=== PATIENT | male | born 1960 ===

== ENCOUNTER 2023-09-05 11:40 | Inpatient (IN) | payer MEDICARE ==
[~2023-09-05] VITALS: Ht 175.3 cm; Wt 82.4 kg
[2023-09-05] MEDS ORDERED: METFORMIN HCL500 M2 PO (11:55)
[2023-09-05] MEDS ORDERED: LISINOPRIL-HCT1 EACH PO (11:55)
[2023-09-05] MEDS ORDERED: ATOR40TA PO (11:55)
[2023-09-05] MEDS ORDERED: AMLODIPINE BESYL5 MG PO (11:55)
[2023-09-05] MEDS ORDERED: NS 1,000 ML IV SCH ×4 (12:10→16:10)
[2023-09-05 12:18] LABS: BASOPHILS ABSOLUTE AUTO 0.02 K/mm3 (0.00-0.23); BASOPHILS PERCENT AUTO 0 % (0-2); EOSINOPHILS ABSOLUTE AUTO 0.17 K/mm3 (0.00-0.68); EOSINOPHILS PERCENT AUTO 2 % (0-6); Hematocrit 24.2 % (37.0-53.0); Hemoglobin 8.4 g/dL (13.5-17.5); IMMATURE GRAN ABSOLUTE AUTO 0.03 K/mm3 (0.00-0.10); IMMATURE GRAN PERCENT AUTO 0 % (0-1); LYMPHOCYTES ABSOLUTE AUTO 0.46 K/mm3 (0.84-5.20); LYMPHOCYTES PERCENT AUTO 6 % (21-46); MONOCYTES ABSOLUTE AUTO 0.48 K/mm3 (0.16-1.47); MONOCYTES PERCENT AUTO 7 % (4-13); Mean Corpuscular HGB 30.3 pg (26.0-34.0); Mean Corpuscular HGB Conc 34.7 g/dL (31.5-36.5); Mean Corpuscular Volume 87 fL (80-100); Mean Platelet Volume 10.1 fL (9.1-12.4); NEUTROPHILS ABSOLUTE AUTO 6.06 K/mm3 (1.96-9.15); NEUTROPHILS PERCENT AUTO 84 % (41-73); NRBC ABSOLUTE 0.02 K/mm3 (0.00-0.02); NRBC Auto 0.3 /100 WBC (0.0-0.2); Platelet Count 232 K/mm3 (150-400); RDW Coefficient Variation 15.7 % (11.7-14.2); RDW Standard Deviation 49.7 fL (35.1-46.3); Red Blood Cell Count 2.77 M/mm3 (4.30-5.90); White Blood Cell Count 7.22 K/mm3 (4.00-11.30)
[2023-09-05 12:39] LABS: Source, Urine Straight Cath
[2023-09-05 12:42] LABS: Bun/Creatinine Ratio 24.3 (12.0-20.0); Calcium, Blood 8.8 mg/dL (8.5-10.1); Creatinine, Blood 1.4 mg/dL (0.60-1.20); Potassium, Blood 4.2 mmol/L (3.5-5.5)
[2023-09-05 12:59] LABS: Appearance, Urine Clear (Clear); Bilirubin, Urine Neg (Neg); Blood, Urine 1+ (Neg); Color, Urine Yellow (P-Yellow); Glucose Qualitative, Urine Neg (Neg); Ketones, Urine Neg (Neg); Leukocyte Esterase, Urine 1+ (Neg); Nitrite, Urine Pos (Neg); Protein, Urine Neg (Neg); Urobilinogen, Urine NORM (Normal)
[2023-09-05 13:17] LABS: Red Blood Cells, Urine 0-2 /hpf (0-2)
[2023-09-05 13:18] LABS: Bacteria Many /hpf; Squamous Epithelial Cells Rare /hpf (Few)
[2023-09-05] MEDS ORDERED: CefTRIAXone Sodium 1,000 MG in NS 50 ML IV ONE ×2 (14:20→16:15)
[2023-09-05] MEDS ORDERED: Nystatin 100,000 Unit/GM Ointment 15 GM TOP ONE (15:50)
[2023-09-05] MEDS ORDERED: FLU VACC QS2023-24(6MOS UP)/PF 60 MCG/0.5 ML SYRINGE IM SCH (16:05)
[2023-09-05 18:37] VITALS: BP 103/59
--- NOTE | 2023-09-05 18:59 | NUR ---
ADMISSION NOTE: PATIENT ARRIVES TO ROOM AT 1820. PATIENT TRANSFERRED TO BED c 1 ASSIST AND USES A CANE. PATIENT ALERT AND ORIENTED TO SELF AND PLACED. PATIENT APPEARS TO HAVE SOME DEVELOPMENTAL DELAYED. QUICK ADMISSION AND INITIAL SCREENING COMPLETED. PATIENT ORIENTATED TO ROOM AND CALL SYSTEM. BED ALARM ON FOR SAFETY. CALL LIGHT IN REACH.
[2023-09-05 19:33] VITALS: BP 101/57
[2023-09-05] MEDS ORDERED: NS 250 ML IV PRN (19:40)
[2023-09-06] MEDS ORDERED: FentaNYL Citrate 50 MCG/ML 2 ML Injection IV PRN (01:30)
--- NOTE | 2023-09-06 02:05 | NUR ---
ASKED PT IF HE NEEDED TO URINATE. PT STATED THAT HE NEEDED "A CUP TO PEE IN". URINAL PROVIDED, ASKED PT IF HE WAS ABLE TO USE URINAL ON HIS OWN. PT STATED THAT HE THOUGHT HE COULD. PT THEN STATED THAT HE NEEDED TO URINATE RIGHT AWAY AND THAT HE WAS UNABLE TO HOLD IT. PT DID NOT ATTEMPT TO USE URINAL ON HIS OWN. THIS RN ASSISTED PT WITH URINAL, PT URINATED 900 ML OF CLEAR, YELLOW URINE. URINAL LEFT AT BEDSIDE TABLE AND PT ENCOURAGED TO EMPTY HIS BLADDER MORE FREQUENTLY.
[2023-09-06 05:36] VITALS: BP 90/56
[2023-09-06 05:50] LABS: BASOPHILS ABSOLUTE AUTO 0.02 K/mm3 (0.00-0.23); BASOPHILS PERCENT AUTO 0 % (0-2); EOSINOPHILS PERCENT AUTO 4 % (0-6); Hematocrit 22.1 % (37.0-53.0); Hemoglobin 7.3 g/dL (13.5-17.5); IMMATURE GRAN ABSOLUTE AUTO 0.02 K/mm3 (0.00-0.10); IMMATURE GRAN PERCENT AUTO 0 % (0-1); LYMPHOCYTES ABSOLUTE AUTO 0.52 K/mm3 (0.84-5.20); LYMPHOCYTES PERCENT AUTO 11 % (21-46); MONOCYTES ABSOLUTE AUTO 0.31 K/mm3 (0.16-1.47); MONOCYTES PERCENT AUTO 7 % (4-13); Mean Corpuscular HGB 29.2 pg (26.0-34.0); Mean Corpuscular Volume 88 fL (80-100); Mean Platelet Volume 9.7 fL (9.1-12.4); NEUTROPHILS ABSOLUTE AUTO 3.68 K/mm3 (1.96-9.15); NEUTROPHILS PERCENT AUTO 78 % (41-73); Platelet Count 198 K/mm3 (150-400); RDW Coefficient Variation 15.9 % (11.7-14.2); RDW Standard Deviation 51.3 fL (35.1-46.3); White Blood Cell Count 4.75 K/mm3 (4.00-11.30)
[2023-09-06 06:18] LABS: Albumin, Blood 2.6 g/dL (3.4-5.0); Bilirubin, Total 0.4 mg/dL (0.1-1.0); Calcium, Blood 8.7 mg/dL (8.5-10.1); Creatinine, Blood 1.05 mg/dL (0.60-1.20); Globulin, Blood 2.7 g/dL (2.2-4.0); Magnesium, Blood 1.6 mg/dL (1.6-2.4); Potassium, Blood 4.1 mmol/L (3.5-5.5); Total Protein, Blood 5.3 g/dL (6.4-8.2)
[2023-09-06 07:35] VITALS: BP 103/57
[2023-09-06] MEDS ORDERED: Vancomycin HCL 1,000 MG in NS 100 ML IV SCH (08:00)
[2023-09-06] MEDS ORDERED: Heparin Sodium,Porcine 5,000 UNIT/0.5 ML SDV SC SCH (09:00)
[2023-09-06] MEDS ORDERED: CefTRIAXone Sodium 2,000 MG in NS 100 ML IV SCH (12:00)
[2023-09-06 15:02] VITALS: BP 78/47
--- NOTE | 2023-09-06 15:14 | NUR ---
COVERING PATIENT CARE WHILE PRIMARY NURSE IS ON BREAK. SOLUTIONS DEVELOPER WENT IN FOR VITAL SIGNS ON PATIENT AND HAD CONCERNS WITH PATIENT'S BP BEING LOW. SEVERAL BP READINGS TAKEN ON BOTH ARMS WITH A FINAL READING OF 78/47 PULSE OF 75. PATIENT DENIES FEELINGS OF FATIGUE, DIZZINESS, OR LIGHTHEADEDNESS. SOLUTIONS DEVELOPER STATED THAT THE PULSE OX WAS GAVING A HARD TIME READING AND THAT HIS FINGERS FELT COOLER THAN THIS MORNING. FINAL O2 READING WAS 99%. CALL MADE TO DR. ESTEVEZ, HE ADVISED TO GIVE PATIENT A 500 ML BOLUS AND ONCE COMPLETE REACCESS AND CALL HIM BACK. ORDERS PLACED AND BOLUS IS RUNNING. PRIMARY NURSE RETURNED FROM BREAK AND NOTIFIED.
[2023-09-06] MEDS ORDERED: NS 500 ML IV ONE (15:15)
[2023-09-06 16:37] VITALS: BP 85/47
[2023-09-06] MEDS ORDERED: Midodrine 5 MG Tab PO ONE (16:50)
--- NOTE | 2023-09-06 17:40 | NUR ---
PT IS AO AND COOPERATIVE OF CARE. DOES SEEM TO HAVE DEVELOPMENTAL DELAYS, BUT IS VERY COOPERATIVE. TRANSFERS WELL ONE PERSON WITH WALKER. PT DID WELL WHILE UP IN CHAIR ALL DAY. PT HAD LOW BP AT [address] ESTEVEZ WAS NOTIFIED AND BOLUS STARTED. IV WENT BAD IMMEDIATELY AND MULTIPLE TRYS TO GET IV HAVE FAILED. BP WAS CHECKED AGAIN AT 1637 BP 85/[address] ESTEVEZ WAS NOTIFIED AND TOLD OF DIFFICULTLY WITH IV START. DR ESTEVZE ADDED MEDICATION TO HELP INCREASE BP UNTIL IV CAN BE PLACED. WILL CONTINUE TO MONITOR.
[2023-09-06 18:19] VITALS: BP 99/59
--- NOTE | 2023-09-06 18:28 | NUR ---
PT STILL DOES NOT HAVE NEW IV. BP WAS RECHECKED AND BP WAS 99/59 P75.
[2023-09-06 19:44] VITALS: BP 101/64
[2023-09-07 03:29] VITALS: BP 98/58
--- NOTE | 2023-09-07 07:35 | NUR ---
Shift Summary Pt was rcving bolus at the start of the shift for hypotension, BP remained stable during routine checks. He c/o severe R hip pain which he does not want to ambulate on, he was medicated per emar. During the night he said he could not void, a bladder scan revealed 800 mL. During preparation for straight cath he voided. Repeat bladder scan revealed 699 mL. I attempted to straight cath but due to scrotal hernia I was unable to reach the bladder. Chyna Curry attempted to place a coude catheter but was also unable to reach the bladder. Pt encouraged to sit on the toilet and to try and void but he refused to get up d/t hip pain. Pt AOx3 with some confusion. He is rcving NS @ 100 ml/hr.
[2023-09-07 07:40] VITALS: BP 102/59
[2023-09-07 08:04] LABS: BASOPHILS ABSOLUTE AUTO 0.03 K/mm3 (0.00-0.23); BASOPHILS PERCENT AUTO 1 % (0-2); EOSINOPHILS ABSOLUTE AUTO 0.28 K/mm3 (0.00-0.68); EOSINOPHILS PERCENT AUTO 7 % (0-6); Hematocrit 23.6 % (37.0-53.0); Hemoglobin 7.8 g/dL (13.5-17.5); IMMATURE GRAN ABSOLUTE AUTO 0.02 K/mm3 (0.00-0.10); IMMATURE GRAN PERCENT AUTO 1 % (0-1); LYMPHOCYTES ABSOLUTE AUTO 0.65 K/mm3 (0.84-5.20); LYMPHOCYTES PERCENT AUTO 15 % (21-46); MONOCYTES ABSOLUTE AUTO 0.35 K/mm3 (0.16-1.47); MONOCYTES PERCENT AUTO 8 % (4-13); Mean Corpuscular HGB 29.5 pg (26.0-34.0); Mean Corpuscular HGB Conc 33.1 g/dL (31.5-36.5); Mean Corpuscular Volume 89 fL (80-100); Mean Platelet Volume 9.9 fL (9.1-12.4); NEUTROPHILS ABSOLUTE AUTO 2.92 K/mm3 (1.96-9.15); NEUTROPHILS PERCENT AUTO 69 % (41-73); Platelet Count 194 K/mm3 (150-400); RDW Coefficient Variation 16.5 % (11.7-14.2); RDW Standard Deviation 53.9 fL (35.1-46.3); Red Blood Cell Count 2.64 M/mm3 (4.30-5.90); White Blood Cell Count 4.25 K/mm3 (4.00-11.30)
[2023-09-07 08:21] LABS: Bun/Creatinine Ratio 15.5 (12.0-20.0); Creatinine, Blood 0.9 mg/dL (0.60-1.20); Potassium, Blood 4.3 mmol/L (3.5-5.5)
[2023-09-07 08:32] LABS: Vancomycin, Trough 21.7 ug/mL (5.0-10.0)
[2023-09-07] MEDS ORDERED: Miconazole Nitrate 2% 85 GM PWD TOP SCH (09:00)
[2023-09-07] MEDS ORDERED: ALLO100 PO (14:42)
[2023-09-07 15:25] VITALS: BP 85/60
--- NOTE | 2023-09-07 16:34 | NUR ---
PT AO AND COOPERATIVE OF CARE. PT WORKING WELL WITH CARGIVERS. PT UP IN CHAIR NO DISTRESS NOTED. PT DOES SEEM TO HAVE A LOWER BP OF 85/60 P 92 WILL REEVALUATE WHEN HE IS BACK IN BED. PT CAN MAKE HIS NEEDS KNOWN. WORKED WELL WITH OT AND PHYSICAL THERAPY. WILL CONTINUE TO MONITOR.
[2023-09-07] MEDS ORDERED: OxyCODONE HCL 5 MG TAB PO PRN (17:25)
[2023-09-07] MEDS ORDERED: NS 500 ML IV ONE ×2 (17:45→19:50)
--- NOTE | 2023-09-07 18:31 | NUR ---
PT STILL HAD LOW BP LYING DOWN OF 89/[address] ESTEVEZ ORDERED A 500ML NS BOLUS. PT IS CURRENTLY RECIEVING NOW. WILL CONTINUE TO MONITOR.
[2023-09-07 19:32] VITALS: BP 81/46
[2023-09-07] MEDS ORDERED: Melatonin 3 MG Tab PO SCH (21:00)
[2023-09-07 22:00] VITALS: BP 88/56
[2023-09-07 23:42] VITALS: BP 97/54
[2023-09-08 01:37] VITALS: BP 92/59
[2023-09-08 03:47] VITALS: BP 91/60
--- NOTE | 2023-09-08 04:25 | NUR ---
SHORT ORDER COOK SUMMARY PT A&O X3, PLEASANT THROUGH THE SHIFT. PT SKIN FOLDS WERE CLEANED AND POWDER APPLIED TO FOLDS IN GROIN. MEPELIX APPLIED TO COCCYX DUE TO INCREASED REDNESS. PT LOWER TRUNK AND ARMS COVERED IN A SLOUGHING REDENNED SKIN. PT DENIES DISCOMFORT OF SKIN. PT BP READING AT START OF SHIFT AFTER DAY SHIFT HAD GIVEN A 500CC BOLUS WAS 89/54. MATTHEW SOLANO CONTACTED REGARDING BP AND ANOTHER 500CC BOLUS AND STAT LACTIC ACID WERE ORDERED. PT BP FOLLOWING THIS BOLUS WAS 88/56 AND LACTIC ACID RESULT WAS NORMAL. MATTEHW SOLANO CONTACTED AGAIN WITH ORDERS TO DO REPEATED BP CHECKS X 3 AND CALL HIM IF MAP VALUE DECREASED BELOW 65. PT ASYMPTOMATIC DURING ALL BP CHECKS AND REPORTED FEELING FINE. THE FOLLOWING BP WAS 97/54 MAP 67 AND THE 2 OTHERS WERE AROUND THE SAME VALUES. PT HIGHEST BP WHILE HERE HAS BEEN 111/61. PT NOT SHOWING S/S OF PAIN UNLESS LAID FLAT FOR BP OR BED CHANGES. 09/08/23 ELI BLAIR RN
[2023-09-08 05:14] LABS: BASOPHILS ABSOLUTE AUTO 0.03 K/mm3 (0.00-0.23); BASOPHILS PERCENT AUTO 1 % (0-2); EOSINOPHILS ABSOLUTE AUTO 0.36 K/mm3 (0.00-0.68); EOSINOPHILS PERCENT AUTO 9 % (0-6); Hematocrit 21.6 % (37.0-53.0); Hemoglobin 7.1 g/dL (13.5-17.5); IMMATURE GRAN ABSOLUTE AUTO 0.01 K/mm3 (0.00-0.10); IMMATURE GRAN PERCENT AUTO 0 % (0-1); LYMPHOCYTES PERCENT AUTO 17 % (21-46); MONOCYTES ABSOLUTE AUTO 0.34 K/mm3 (0.16-1.47); MONOCYTES PERCENT AUTO 8 % (4-13); Mean Corpuscular HGB Conc 32.9 g/dL (31.5-36.5); Mean Corpuscular Volume 88 fL (80-100); Mean Platelet Volume 9.4 fL (9.1-12.4); NEUTROPHILS ABSOLUTE AUTO 2.68 K/mm3 (1.96-9.15); NEUTROPHILS PERCENT AUTO 65 % (41-73); Platelet Count 183 K/mm3 (150-400); RDW Coefficient Variation 16.6 % (11.7-14.2); RDW Standard Deviation 53.4 fL (35.1-46.3); Red Blood Cell Count 2.45 M/mm3 (4.30-5.90); White Blood Cell Count 4.12 K/mm3 (4.00-11.30)
[2023-09-08 05:45] LABS: Albumin, Blood 2.7 g/dL (3.4-5.0); Bilirubin, Total 0.3 mg/dL (0.1-1.0); Bun/Creatinine Ratio 12.6 (12.0-20.0); Creatinine, Blood 0.87 mg/dL (0.60-1.20); Globulin, Blood 2.7 g/dL (2.2-4.0); Potassium, Blood 4.3 mmol/L (3.5-5.5); Total Protein, Blood 5.4 g/dL (6.4-8.2)
[2023-09-08 07:44] VITALS: BP 108/56
[2023-09-08 11:34] LABS: Percent Saturation 44.9 % (20.0-50.0)
[2023-09-08 16:00] VITALS: BP 86/54
--- NOTE | 2023-09-08 17:23 | NUR ---
SHIFT SUMMARY PATIENT WITH NO ACUTE EVENTS DURING SHIFT. HE IS MDICATED PER EMAR. IV ACCESS LOST AND DR ESTEVEZ MADE AWARE, ORDER RECIEVED FOR NO IV ACESS AND WILL CHANGE TO ORAL ANTIBIOTICS.
[2023-09-08] MEDS ORDERED: Trimethoprim/Sulfamethoxazole DS Tab PO SCH (21:00)
[2023-09-08 21:01] VITALS: BP 91/62
[2023-09-09 05:44] LABS: BASOPHILS ABSOLUTE AUTO 0.04 K/mm3 (0.00-0.23); BASOPHILS PERCENT AUTO 1 % (0-2); EOSINOPHILS PERCENT AUTO 10 % (0-6); Hematocrit 21.8 % (37.0-53.0); Hemoglobin 7.3 g/dL (13.5-17.5); IMMATURE GRAN ABSOLUTE AUTO 0.02 K/mm3 (0.00-0.10); IMMATURE GRAN PERCENT AUTO 0 % (0-1); LYMPHOCYTES ABSOLUTE AUTO 0.93 K/mm3 (0.84-5.20); LYMPHOCYTES PERCENT AUTO 19 % (21-46); MONOCYTES ABSOLUTE AUTO 0.44 K/mm3 (0.16-1.47); MONOCYTES PERCENT AUTO 9 % (4-13); Mean Corpuscular HGB 29.7 pg (26.0-34.0); Mean Corpuscular HGB Conc 33.5 g/dL (31.5-36.5); Mean Corpuscular Volume 89 fL (80-100); Mean Platelet Volume 9.8 fL (9.1-12.4); NEUTROPHILS ABSOLUTE AUTO 3.08 K/mm3 (1.96-9.15); NEUTROPHILS PERCENT AUTO 61 % (41-73); Platelet Count 189 K/mm3 (150-400); RDW Coefficient Variation 16.6 % (11.7-14.2); RDW Standard Deviation 53.7 fL (35.1-46.3); Red Blood Cell Count 2.46 M/mm3 (4.30-5.90); White Blood Cell Count 5.01 K/mm3 (4.00-11.30)
--- NOTE | 2023-09-09 06:08 | NUR ---
SHIFT SUMMARY NO ACUTE CHANGES NOTED OVER NIGHT, A&O, VSS, RA, QUYEN PO, VOIDING WNL, PAIN MANAGED PRN PER EMAR, RESP UNLABORED, CALL LIGHT IN REACH
[2023-09-09 06:15] LABS: Bun/Creatinine Ratio 11.4 (12.0-20.0); Calcium, Blood 9.1 mg/dL (8.5-10.1); Creatinine, Blood 0.97 mg/dL (0.60-1.20); Potassium, Blood 4.9 mmol/L (3.5-5.5)
[2023-09-09 06:42] VITALS: BP 90/59
[2023-09-09 07:19] VITALS: BP 90/53
[2023-09-09 08:36] LABS: IMMATURE RETIC FRACTION 13.8 % (2.3-16.0); RETIC HGB EQUIVALENT 37.4 pg (28.20-36.60); RETICULOCYTE ABSOLUTE 0.0298 M/mm3 (0.0200-0.1100); RETICULOCYTE COUNT PERCENT 1.23 % (0.50-2.50)
[2023-09-09] MEDS ORDERED: Folic Acid 1 MG TAB PO SCH (09:00)
[2023-09-09 12:00] LABS: SARS-Cov-2 (COVID-19) PCR, MMC NEGATIVE (NEGATIVE)
[2023-09-09] MEDS ORDERED: BACTRIM DS TAB1 EAC1 PO (13:03)
[2023-09-09] MEDS ORDERED: FOLI1 PO (13:03)
[2023-09-09 15:49] VITALS: BP 87/50
--- NOTE | 2023-09-09 18:18 | NUR ---
PATIENT IS ALERT AND ORIENTED AND COOPERATIVE WITH CARE. ON RA. PLAN IS FOR DISCHARGE TO [facility] AT 1830. PATIENT EATS INDEPENDENTLY. HIS ROOMATE VISITED TODAY. WILL CONTINUE TO MONITOR
[2023-09-10 14:51] LABS: HOMOCYSTEINE,TOTAL 55 umol/L (0-15)
[2023-09-11 06:59] LABS: MMA S/P,VITAMIN B12 STATUS 0.31 umol/L (0.00-0.40)
== END 2023-09-09 18:35 | DRG 872 ==
LOC: ER 11:40 → MEDS 16:04
PROVIDERS: Internal Medicine; Student in an Organized Health Care Education/Training Program; ADMIT Family Medicine
DX: A41.9 Sepsis, unspecified organism (principal); N12 Tubulo-interstitial nephritis, not specified as acute or chronic; N17.9 Acute kidney failure, unspecified; Z11.52 Encounter for screening for COVID-19; I10 Essential (primary) hypertension; E78.5 Hyperlipidemia, unspecified; E66.9 Obesity, unspecified; N49.2 Inflammatory disorders of scrotum; D64.9 Anemia, unspecified; K40.20 Bilateral inguinal hernia, without obstruction or gangrene, not specified as recurrent; B96.20 Unspecified Escherichia coli [E. coli] as the cause of diseases classified elsewhere; E11.9 Type 2 diabetes mellitus without complications; Z68.25 Body mass index [BMI] 25.0-25.9, adult; Z88.5 Allergy status to narcotic agent; Z88.8 Allergy status to other drugs, medicaments and biological substances; Z79.84 Long term (current) use of oral hypoglycemic drugs; Z79.899 Other long term (current) drug therapy
CPT/HCPCS: 36415; 51701; 74177; 80048; 80053; 80202; 81001; 82607; 82728; 82746; 83090; 83540; 83550; 83605; 83735; 83921; 85025; 85045; 87040; 87077; 87086; 87186; 92610; 96361-59; 96365-59; 96376-59; 97110; 97162; 97165; 97530; 97535; 99285-25; A9270; J0696; J1644; J3010; J3370; J7030; J7040; J7050; Q9967; U0002

== ENCOUNTER → 2023-11-14 | Outpatient (CLI) | payer MEDICARE ==
[~2023-11-14] MED LIST: ALLO100 PO; AMLO5 PO; AMLODIPINE BESYL5 MG PO; ATOR40TA PO; BACTRIM DS TAB1 EAC1 PO; FOLI1 PO; IBUP600 PO; LISINOPRIL-HCT1 EACH PO; MELATONIN5 M1 PO; METFORMIN HCL500 M2 PO; PANT40 PO
[2023-11-18 05:51] LABS: CORTISOL,U FREE - RATIO TO CRT 16.32 ug/g CRT; CORTISOL,URINE FREE - PER 24H 22.3 ug/d (<=60.0); CORTISOL,URN FREE - PER VOLUME 5.06 ug/L; CREATININE,URINE - PER 24H 1364 mg/d (800-2100); CREATININE,URINE - PER VOLUME 31 mg/dL; HOURS COLLECTED 24 hr; TOTAL VOLUME 4400 mL
== END | disposition home or self-care (01) ==
LOC: LAB SHORT 06:00 → LAB 06:00 → LAB SHORT 11-15 06:00
PROVIDERS: Internal Medicine Endocrinology, Diabetes & Metabolism
DX: E27.8 Other specified disorders of adrenal gland (principal)
CPT/HCPCS: 82530

== ENCOUNTER → 2024-10-24 | Outpatient (CLI) | payer MEDICARE ==
[2024-10-24 18:26] LABS: Creatinine, Urine Random 8.18 mg/dL (27.00-270.00)
[2024-10-24 18:33] LABS: Microalb/Creat Ratio UR, Rand Unable to Calculate mg/g (0.000-30.000); Microalbumin, Random Urine <5.000 mg/L (0.000-20.000)
== END ==
LOC: LAB SHORT 15:23 → LAB 15:23
PROVIDERS: Internal Medicine
DX: E11.9 Type 2 diabetes mellitus without complications (principal)
CPT/HCPCS: 82043; 82570

== ENCOUNTER 2024-11-14 09:45 | Day surgery (SDC) | payer MEDICARE ==
[~2024-11-14] VITALS: Ht 175.3 cm; Wt 31.3 kg
[~2024-11-14 09:45] MED LIST changes: +Balanced Salt Epinephrine Irrigation Solution 500 mL IR SCH; +Lidocaine HCl/Pf 1% 5 ML VIAL XX SCH; +Moxifloxacin HCL 0.5 MG/0.1 ML 0.4MLSYR RIGHTEYE SCH; +NS 500 ML IV ONE; +PHENYLEPHRINE\\TROPICAMIDE\\TETRACAINE OPHTHALMIC DILATING SOLN RIGHTEYE PRN; +Povidone-Iodine 450 DROP/30 ML Solution ONE; +Povidone-Iodine 450 DROP/30 ML Solution RIGHTEYE SCH; +Tetracaine HCl/Pf 0.5% Opth Soln 4 ml ONE
[2024-11-14] MEDS ORDERED: ALLO300 PO (10:09)
[2024-11-14] MEDS ORDERED: FURO20 PO (10:10)
[2024-11-14] MEDS ORDERED: NS 500 ML IV ONE (10:20)
[2024-11-14] MEDS ORDERED: FentaNYL Citrate 50 MCG/ML 2 ML Injection ONE (10:26)
[2024-11-14] MEDS ORDERED: Midazolam HCl 1MG / ML 2ML Vial ONE ×2 (10:27→10:55)
[2024-11-14] MEDS ORDERED: Tetracaine HCl 0.5% Opth Soln 15 ml RIGHTEYE ONE (10:41)
[2024-11-14 11:09] VITALS: BP 117/76
--- NOTE | 2024-11-14 11:34 | NUR ---
11/14/24 Kaitlynn Cifuentes RETURNED TO PATIENT
== END 2024-11-14 11:33 | disposition home or self-care (01) ==
LOC: ORSCSDS 09:45
PROVIDERS: Student in an Organized Health Care Education/Training Program
PROC: 08RJ3JZ Replacement of Right Lens with Synthetic Substitute, Percutaneous Approach (ICD-10-PCS; principal; 2024-11-14 11:00)
DX: E11.36 Type 2 diabetes mellitus with diabetic cataract (principal); H25.813 Combined forms of age-related cataract, bilateral; R62.59 Other lack of expected normal physiological development in childhood; E78.5 Hyperlipidemia, unspecified; D72.819 Decreased white blood cell count, unspecified; Z87.891 Personal history of nicotine dependence; Z79.84 Long term (current) use of oral hypoglycemic drugs; Z79.899 Other long term (current) drug therapy
CPT/HCPCS: 82947; J2250; J3010; J7040; V2632

== ENCOUNTER 2024-11-28 09:39 | Day surgery (SDC) | payer MEDICARE ==
[~2024-11-28] VITALS: Ht 175.3 cm; Wt 94.8 kg
[~2024-11-28 09:39] MED LIST changes: +ALLO300 PO; +FURO20 PO; +Lidocaine HCl/Pf 1% 5 ML VIAL ONE; +Moxifloxacin HCL 0.5 MG/0.1 ML 0.4MLSYR LEFTEYE SCH; -Moxifloxacin HCL 0.5 MG/0.1 ML 0.4MLSYR RIGHTEYE SCH; +PHENYLEPHRINE\\TROPICAMIDE\\TETRACAINE OPHTHALMIC DILATING SOLN LEFTEYE PRN; -PHENYLEPHRINE\\TROPICAMIDE\\TETRACAINE OPHTHALMIC DILATING SOLN RIGHTEYE PRN; +Povidone-Iodine 450 DROP/30 ML Solution LEFTEYE SCH; -Povidone-Iodine 450 DROP/30 ML Solution RIGHTEYE SCH
[2024-11-28] MEDS ORDERED: Norvasc5 MG PO (09:56)
[2024-11-28] MEDS ORDERED: NS 500 ML IV ONE (10:00)
[2024-11-28] MEDS ORDERED: Midazolam HCl 1MG / ML 2ML Vial ONE ×2 (10:31→10:36)
[2024-11-28] MEDS ORDERED: FentaNYL Citrate 50 MCG/ML 2 ML Injection ONE (10:38)
[2024-11-28 11:12] VITALS: BP 100/72
== END 2024-11-28 11:10 | disposition home or self-care (01) ==
LOC: ORSCSDS 09:39
PROVIDERS: Student in an Organized Health Care Education/Training Program
PROC: 08RK3JZ Replacement of Left Lens with Synthetic Substitute, Percutaneous Approach (ICD-10-PCS; principal; 2024-11-28 11:00)
DX: E11.36 Type 2 diabetes mellitus with diabetic cataract (principal); H25.812 Combined forms of age-related cataract, left eye; Z96.1 Presence of intraocular lens; H43.811 Vitreous degeneration, right eye; I10 Essential (primary) hypertension; E78.5 Hyperlipidemia, unspecified; Z87.891 Personal history of nicotine dependence; Z79.84 Long term (current) use of oral hypoglycemic drugs; Z79.899 Other long term (current) drug therapy
CPT/HCPCS: 82947; J2003; J2250; J3010; J7040; V2632